=== PATIENT | female | born 1995 | race Asian ===

== ENCOUNTER 2016-06-06 12:49 | Emergency (ER) | payer OTHER ==
[2016-06-06 12:53] VITALS: BP 121/87
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
[2016-06-06] MEDS ORDERED: MOBIC15 M1 PO (13:27)
[2016-06-06] MEDS ORDERED: CYCLOBENZAPRINE10 M1 PO (13:27)
== END 2016-06-06 14:00 ==
LOC: ERH 12:49
DX: S16.1XXA Strain of muscle, fascia and tendon at neck level, initial encounter (principal); G56.01 Carpal tunnel syndrome, right upper limb; V49.40XA Driver injured in collision with unspecified motor vehicles in traffic accident, initial encounter; Y92.410 Unspecified street and highway as the place of occurrence of the external cause